=== PATIENT | female | born 1965 | race Caucasian/White ===

== ENCOUNTER 2020-05-13 05:48 | Observation (INO) ==
[2020-05-13] MEDS ORDERED: *HR* HYDROcodone/Acet 5/325 mg TABLET PO PRN (09:18)
[2020-05-13] MEDS ORDERED: Ondansetron 4 MG/2 ML VIAL IVP PRN (09:18)
[2020-05-13] MEDS ORDERED: Naloxone 0.4 MG/ML INJ IVP PRN (09:18)
[2020-05-13] MEDS ORDERED: 0.9 % Sodium Chloride 1,000 ML IVC SCH (09:30)
[2020-05-13] MEDS: Acetaminophen 325 MG TABLET PO PRN ×2 (10:15→21:40)
[2020-05-13] MEDS: MethylPREDNISolone 40 MG/ML VIAL IVP SCH ×2 (10:15→21:15)
[2020-05-13] MEDS: Ampicillin/Sulbactam 1,500 MG in 0.9 % Sodium Chloride Mini Bag 100 ML IVPB SCH ×3 (10:23→23:11)
[2020-05-13] MEDS: Ipratropium/Albuterol Neb 3 ML IH SCH ×3 (11:23→19:40)
[2020-05-13] MEDS: *HR* Heparin 5,000 UNIT/ML VIAL SQ SCH ×2 (15:03→21:14)
[2020-05-14] MEDS: Ipratropium/Albuterol Neb 3 ML IH SCH ×3 (00:05→08:06)
[2020-05-14 03:33] LABS: Basophils % 0.2 %; Hematocrit 31.2 % (35.3-44.9); Hemoglobin 10.2 g/dL (11.5-15.4); Immature Granulocytes % 0.8 % (0-4); Lymphocytes # 0.8 K/mcL (0.6-4.6); Lymphocytes % 4.2 %; Mean Corpuscular HGB Conc 32.7 g/dL (31.6-35.5); Mean Corpuscular Volume 97.8 fL (83.0-100.0); Mean Platelet Volume 9.4 fL (9.4-12.4); Monocytes # 0.2 K/mcL (0.0-1.3); Monocytes % 1.2 %; Neutrophils # 18.6 K/mcL (1.6-8.9); Platelet Count 330 K/mcL (140-400); Red Blood Count 3.19 M/mcL (3.82-4.97); Red Cell Distribution Width 12.8 % (11.5-14.5); Segmented Neutrophils % 93.6 %; White Blood Count 19.8 K/mcL (4.3-11.1)
[2020-05-14 03:53] LABS: BUN/Creatinine Ratio 26 (6-26); Blood Urea Nitrogen 23 mg/dL (6-20); Calcium 9.4 mg/dL (8.6-10.3); Carbon Dioxide 23 mEq/L (23-29); Chloride 107 mEq/L (98-107); Glucose 198 mg/dL (70-105); Magnesium 1.8 mg/dL (1.6-2.6); Osmolality,Calculated 293 (280-300); Phosphorous 2.3 mg/dL (2.7-4.5); Sodium 137 mEq/L (136-145); eGFR For African Americans > 60 (> 60); eGFR For Non-African Americans > 60 (> 60)
[2020-05-14] MEDS: Ampicillin/Sulbactam 1,500 MG in 0.9 % Sodium Chloride Mini Bag 100 ML IVPB SCH (05:25)
[2020-05-14] MEDS: *HR* Heparin 5,000 UNIT/ML VIAL SQ SCH (05:26)
[2020-05-14 07:13] VITALS: BP 152/82
[2020-05-14] MEDS: MethylPREDNISolone 40 MG/ML VIAL IVP SCH (08:57)
== END 2020-05-14 10:46 | disposition home or self-care (01) ==
LOC: 2NNU
PROVIDERS: ADMIT Family Medicine; ATTEND Family Medicine

== ENCOUNTER 2020-11-11 11:46 | Inpatient (IN) ==
[2020-11-11] MEDS ORDERED: Acetaminophen 325 MG TABLET PO PRN (17:36)
[2020-11-11] MEDS ORDERED: Naloxone 0.4 MG/ML INJ IVP PRN (17:36)
[2020-11-11] MEDS ORDERED: Ondansetron 4 MG/2 ML VIAL IVP PRN (17:36)
[2020-11-11] MEDS: 0.9 % Sodium Chloride 1,000 ML IVC SCH (18:16)
[2020-11-11] MEDS: cefTRIAXone 1,000 MG in Water for inj. (sterile) 10 ML IVP SCH (18:17)
[2020-11-11] MEDS: *HR* Enoxaparin 60 MG/0.6 ML SYRINGE SQ SCH (18:18)
[2020-11-11] MEDS: Nicotine 7 MG PATCH.TD24 TD SCH (18:29)
[2020-11-11] MEDS: *HR* HYDROcodone/Acet 5/325 mg TABLET PO PRN (20:59)
[2020-11-11 22:27] LABS: Troponin I 0.03 ng/mL (< 0.04)
[2020-11-12 02:41] LABS: Basophils % 0.3 %; Hematocrit 24.7 % (35.3-44.9); Hemoglobin 8.1 g/dL (11.5-15.4); Immature Granulocytes % 2.4 % (0-4); Lymphocytes # 0.4 K/mcL (0.6-4.6); Mean Corpuscular HGB Conc 32.8 g/dL (31.6-35.5); Mean Corpuscular Volume 94.6 fL (83.0-100.0); Mean Platelet Volume 9.8 fL (9.4-12.4); Monocytes # 0.1 K/mcL (0.0-1.3); Monocytes % 1.7 %; Neutrophils # 5.9 K/mcL (1.6-8.9); Platelet Count 140 K/mcL (140-400); Red Blood Count 2.61 M/mcL (3.82-4.97); Red Cell Distribution Width 13.2 % (11.5-14.5); Segmented Neutrophils % 89.6 %; White Blood Count 6.6 K/mcL (4.3-11.1)
[2020-11-12 03:07] LABS: Albumin 2.8 g/dL (3.5-5.7); Albumin/Globulin Ratio 1.1 (1.1-2.2); Bilirubin,Total 0.3 mg/dL (0.3-1.0); Calcium 7.5 mg/dL (8.6-10.3); Globulin 2.5 g/dL (2.4-3.5); Magnesium 2.8 mg/dL (1.6-2.6); Phosphorous 3.3 mg/dL (2.7-4.5); Platelet Estimate Normal (Normal); Total Protein 5.3 g/dL (6.4-8.9)
[2020-11-12] MEDS: *HR* Enoxaparin 60 MG/0.6 ML SYRINGE SQ SCH (05:51)
[2020-11-12] MEDS ORDERED: *HR* Enoxaparin 40 MG/0.4 ML SYRINGE SQ SCH (06:00)
[2020-11-12] MEDS ORDERED: Isovue-370 500 ML BOTTLE IVP ONE (07:39)
[2020-11-12] MEDS: Nicotine 7 MG PATCH.TD24 TD SCH (09:14)
[2020-11-12] MEDS: 0.9 % Sodium Chloride 1,000 ML IVC SCH (09:53)
[2020-11-12] MEDS: *HR* OxyCODONE Immed Rel 5 MG TABLET PO PRN ×3 (10:03→22:27)
[2020-11-12 12:37] LABS: Influenza A PCR Negative (Negative); Influenza B PCR Negative (Negative); Resp. Syncytial Virus PCR Negative (Negative)
[2020-11-12 12:43] LABS: SARS-CoV-2 by PCR (In House) Positive (Negative)
[2020-11-12] MEDS ORDERED: Remdesivir 200 MG in 0.9 % Sodium Chloride 100 ML IVPB ONE (14:00)
[2020-11-12] MEDS: Azithromycin 500 MG in 0.9 % Sodium Chloride 250 ML IVPB SCH (17:27)
[2020-11-12] MEDS: cefTRIAXone 1,000 MG in Water for inj. (sterile) 10 ML IVP SCH (17:27)
[2020-11-13 05:08] LABS: Hemoglobin 8.1 g/dL (11.5-15.4); Mean Corpuscular HGB Conc 32.4 g/dL (31.6-35.5); Mean Corpuscular Hemoglobin 31.6 pg (28.0-33.3); Mean Corpuscular Volume 97.7 fL (83.0-100.0); Mean Platelet Volume 9.9 fL (9.4-12.4); Platelet Count 183 K/mcL (140-400); Red Blood Count 2.56 M/mcL (3.82-4.97); Red Cell Distribution Width 13.8 % (11.5-14.5); White Blood Count 9.5 K/mcL (4.3-11.1)
[2020-11-13 05:22] LABS: Albumin 2.6 g/dL (3.5-5.7); Bilirubin,Direct 0.1 mg/dL (0.0-0.2); Bilirubin,Indirect 0.1 mg/dL (0.0-1.0); Bilirubin,Total 0.2 mg/dL (0.3-1.0); Globulin 2.7 g/dL (2.4-3.5); Total Protein 5.3 g/dL (6.4-8.9)
[2020-11-13 05:24] LABS: BUN/Creatinine Ratio 21 (6-26); Blood Urea Nitrogen 22 mg/dL (6-20); Calcium 8.1 mg/dL (8.6-10.3); Carbon Dioxide 18 mEq/L (23-29); Chloride 113 mEq/L (98-107); Glucose 101 mg/dL (70-105); Magnesium 1.8 mg/dL (1.6-2.6); Osmolality,Calculated 291 (280-300); Phosphorous 3.5 mg/dL (2.7-4.5); Potassium 4.1 mEq/L (3.5-5.1); Sodium 139 mEq/L (136-145); Transferrin 105 mg/dL (203-362); eGFR For African Americans > 60 (> 60); eGFR For Non-African Americans 55 (> 60)
[2020-11-13 05:42] LABS: Ferritin 543 ng/mL (10-120)
[2020-11-13 05:47] LABS: Folate 11.1 ng/mL (3.0-16.0)
[2020-11-13] MEDS: Cyanocobalamin (B-12) 1,000 MCG/ML VIAL IM SCH (08:31)
[2020-11-13] MEDS: Nicotine 7 MG PATCH.TD24 TD SCH (08:32)
[2020-11-13] MEDS: *HR* OxyCODONE Immed Rel 5 MG TABLET PO PRN ×2 (08:32→17:49)
[2020-11-13 09:37] LABS: % Iron Saturation 17 % (15-50); Iron 25 mcg/dL (50-170)
[2020-11-13] MEDS ORDERED: Iron Sucrose Complex 400 MG in 0.9 % Sodium Chloride 250 ML IVPB ONE (12:39)
[2020-11-13] MEDS ORDERED: Remdesivir 100 MG in 0.9 % Sodium Chloride 100 ML IVPB SCH (14:00)
[2020-11-13] MEDS: QUEtiapine Fumarate 100 MG TABLET PO SCH ×2 (16:43→19:31)
[2020-11-13] MEDS: cefTRIAXone 1,000 MG in Water for inj. (sterile) 10 ML IVP SCH (17:49)
[2020-11-13] MEDS: Azithromycin 500 MG in 0.9 % Sodium Chloride 250 ML IVPB SCH (17:49)
[2020-11-14] MEDS: *HR* OxyCODONE Immed Rel 5 MG TABLET PO PRN ×2 (00:14→09:57)
[2020-11-14 06:23] LABS: Alanine Aminotransferase 9 Units/L (7-52); Albumin 2.9 g/dL (3.5-5.7); Albumin/Globulin Ratio 1.1 (1.1-2.2); Alkaline Phosphatase 77 Units/L (34-104); Aspartate Amino Transferase 21 Units/L (13-39); BUN/Creatinine Ratio 23 (6-26); Bilirubin,Indirect 0.3 mg/dL (0.0-1.0); Bilirubin,Total 0.3 mg/dL (0.3-1.0); Blood Urea Nitrogen 23 mg/dL (6-20); Calcium 8.6 mg/dL (8.6-10.3); Carbon Dioxide 18 mEq/L (23-29); Chloride 111 mEq/L (98-107); Globulin 2.7 g/dL (2.4-3.5); Glucose 111 mg/dL (70-105); Osmolality,Calculated 288 (280-300); Potassium 4.2 mEq/L (3.5-5.1); Sodium 137 mEq/L (136-145); Total Protein 5.6 g/dL (6.4-8.9); eGFR For African Americans > 60 (> 60); eGFR For Non-African Americans 56 (> 60)
[2020-11-14 06:54] LABS: Hematocrit 25.8 % (35.3-44.9); Hemoglobin 8.2 g/dL (11.5-15.4); Mean Corpuscular HGB Conc 31.8 g/dL (31.6-35.5); Mean Corpuscular Hemoglobin 30.7 pg (28.0-33.3); Mean Corpuscular Volume 96.6 fL (83.0-100.0); Mean Platelet Volume 9.7 fL (9.4-12.4); Platelet Count 227 K/mcL (140-400); Red Blood Count 2.67 M/mcL (3.82-4.97); Red Cell Distribution Width 14.1 % (11.5-14.5); White Blood Count 6.9 K/mcL (4.3-11.1)
[2020-11-14] MEDS: Nicotine 7 MG PATCH.TD24 TD SCH (09:42)
[2020-11-14] MEDS: Cyanocobalamin (B-12) 1,000 MCG/ML VIAL IM SCH (09:43)
[2020-11-14] MEDS: QUEtiapine Fumarate 100 MG TABLET PO SCH ×3 (09:43→22:08)
[2020-11-14] MEDS: Azithromycin 500 MG in 0.9 % Sodium Chloride 250 ML IVPB SCH (14:57)
[2020-11-14] MEDS: *HR* HYDROcodone/Acet 5/325 mg TABLET PO PRN ×2 (15:21→22:07)
[2020-11-14] MEDS: ALPRAZolam 0.5 MG TABLET PO PRN (15:21)
[2020-11-14] MEDS: cefTRIAXone 1,000 MG in Water for inj. (sterile) 10 ML IVP SCH (18:01)
[2020-11-15] MEDS: ALPRAZolam 0.5 MG TABLET PO PRN ×2 (06:32→14:36)
[2020-11-15 06:34] LABS: Hematocrit 25.4 % (35.3-44.9); Hemoglobin 8.3 g/dL (11.5-15.4); Mean Corpuscular HGB Conc 32.7 g/dL (31.6-35.5); Mean Corpuscular Hemoglobin 31.6 pg (28.0-33.3); Mean Corpuscular Volume 96.6 fL (83.0-100.0); Mean Platelet Volume 9.6 fL (9.4-12.4); Monocytes # 0.4 K/mcL (0.0-1.3); Platelet Count 255 K/mcL (140-400); Red Blood Count 2.63 M/mcL (3.82-4.97); Red Cell Distribution Width 13.8 % (11.5-14.5); White Blood Count 5.3 K/mcL (4.3-11.1)
[2020-11-15 06:56] LABS: Alanine Aminotransferase 10 Units/L (7-52); Albumin 2.8 g/dL (3.5-5.7); Albumin/Globulin Ratio 1.1 (1.1-2.2); Alkaline Phosphatase 71 Units/L (34-104); Aspartate Amino Transferase 14 Units/L (13-39); BUN/Creatinine Ratio 24 (6-26); Bilirubin,Indirect 0.2 mg/dL (0.0-1.0); Bilirubin,Total 0.2 mg/dL (0.3-1.0); Blood Urea Nitrogen 20 mg/dL (6-20); Calcium 8.4 mg/dL (8.6-10.3); Carbon Dioxide 21 mEq/L (23-29); Chloride 112 mEq/L (98-107); Globulin 2.6 g/dL (2.4-3.5); Glucose 107 mg/dL (70-105); Osmolality,Calculated 293 (280-300); Potassium 3.5 mEq/L (3.5-5.1); Sodium 140 mEq/L (136-145); Total Protein 5.4 g/dL (6.4-8.9); eGFR For African Americans > 60 (> 60); eGFR For Non-African Americans > 60 (> 60)
[2020-11-15 07:06] LABS: Lymphocytes # 0.9 K/mcL (0.6-4.6); Neutrophils # 3.7 K/mcL (1.6-8.9); Platelet Estimate Normal (Normal)
[2020-11-15] MEDS: QUEtiapine Fumarate 100 MG TABLET PO SCH ×3 (08:03→23:35)
[2020-11-15] MEDS: Nicotine 7 MG PATCH.TD24 TD SCH (08:04)
[2020-11-15] MEDS: Cyanocobalamin (B-12) 1,000 MCG/ML VIAL IM SCH (08:05)
[2020-11-15] MEDS: Piperacillin/Tazobactam 3.375 GM in 0.9 % Sodium Chloride Mini Bag 100 ML IVPB SCH ×2 (14:40→23:33)
[2020-11-15] MEDS: *HR* OxyCODONE Immed Rel 5 MG TABLET PO PRN (14:40)
[2020-11-16] MEDS: *HR* OxyCODONE Immed Rel 5 MG TABLET PO PRN (00:19)
[2020-11-16] MEDS: ALPRAZolam 0.5 MG TABLET PO PRN ×3 (00:19→19:36)
[2020-11-16 02:15] LABS: Hemoglobin 8.4 g/dL (11.5-15.4); Mean Corpuscular HGB Conc 32.3 g/dL (31.6-35.5); Mean Corpuscular Volume 95.9 fL (83.0-100.0); Mean Platelet Volume 9.5 fL (9.4-12.4); Platelet Count 298 K/mcL (140-400); Red Blood Count 2.71 M/mcL (3.82-4.97); Red Cell Distribution Width 13.4 % (11.5-14.5); White Blood Count 7.5 K/mcL (4.3-11.1)
[2020-11-16 02:34] LABS: BUN/Creatinine Ratio 18 (6-26); Blood Urea Nitrogen 14 mg/dL (6-20); Calcium 7.9 mg/dL (8.6-10.3); Carbon Dioxide 22 mEq/L (23-29); Chloride 109 mEq/L (98-107); Glucose 105 mg/dL (70-105); Osmolality,Calculated 289 (280-300); Potassium 3.1 mEq/L (3.5-5.1); Sodium 139 mEq/L (136-145); eGFR For African Americans > 60 (> 60); eGFR For Non-African Americans > 60 (> 60)
[2020-11-16 02:39] LABS: Albumin 2.8 g/dL (3.5-5.7); Albumin/Globulin Ratio 1.1 (1.1-2.2); Bilirubin,Direct 0.1 mg/dL (0.0-0.2); Bilirubin,Indirect 0.2 mg/dL (0.0-1.0); Bilirubin,Total 0.3 mg/dL (0.3-1.0); Globulin 2.6 g/dL (2.4-3.5); Total Protein 5.4 g/dL (6.4-8.9)
[2020-11-16] MEDS: *HR* HYDROcodone/Acet 5/325 mg TABLET PO PRN ×2 (08:55→23:29)
[2020-11-16] MEDS: QUEtiapine Fumarate 100 MG TABLET PO SCH ×3 (08:55→19:35)
[2020-11-16] MEDS: Cyanocobalamin (B-12) 1,000 MCG/ML VIAL IM SCH (08:56)
[2020-11-16] MEDS: Piperacillin/Tazobactam 3.375 GM in 0.9 % Sodium Chloride Mini Bag 100 ML IVPB SCH ×3 (08:56→23:26)
[2020-11-16] MEDS: Nicotine 7 MG PATCH.TD24 TD SCH (08:57)
[2020-11-17 08:14] VITALS: BP 171/93; PULSE 80; TEMP 98
[2020-11-17] MEDS: Piperacillin/Tazobactam 3.375 GM in 0.9 % Sodium Chloride Mini Bag 100 ML IVPB SCH (09:08)
[2020-11-17] MEDS: Nicotine 7 MG PATCH.TD24 TD SCH (09:08)
[2020-11-17] MEDS: QUEtiapine Fumarate 100 MG TABLET PO SCH (09:18)
[2020-11-17 10:54] VITALS: O2SAT 95
== END 2020-11-17 11:41 | disposition home or self-care (01) | DRG 871 ==
LOC: 3BNU → SUATTDRO 11-12 13:44
PROVIDERS: ADMIT Pharmacist; ATTEND Internal Medicine

== ENCOUNTER 2021-07-07 12:33 | Inpatient (IN) ==
[2021-07-07] MEDS ORDERED: Naloxone 0.4 MG/ML INJ IVP PRN (16:06)
[2021-07-07] MEDS ORDERED: Ondansetron 4 MG/2 ML VIAL IVP PRN (16:06)
[2021-07-07] MEDS ORDERED: Piperacillin/Tazobactam 3.375 GM in 0.9 % Sodium Chloride Mini Bag 100 ML IVPB SCH (17:00)
[2021-07-07] MEDS ORDERED: Ringers Solution, Lactated 1,000 ML IVC SCH (17:00)
[2021-07-07] MEDS ORDERED: *HR* Propofol 200 MG/20 ML VIAL IVP ONE ×2 (17:37→18:49)
[2021-07-07] MEDS ORDERED: *HR* Rocuronium Bromide 50 MG/5 ML VIAL ONE (17:38)
[2021-07-07] MEDS ORDERED: Lidocaine -MPF 2% 2 ML VIAL ONE (17:38)
[2021-07-07] MEDS ORDERED: *HR* Midazolam HCl 2 MG/2 ML VIAL ONE (18:49)
[2021-07-07] MEDS ORDERED: *HR* FentaNYL (PF) 100 MCG/2 ML VIAL ONE (18:49)
[2021-07-07] MEDS ORDERED: Ondansetron 4 MG/2 ML VIAL ONE (18:51)
[2021-07-07] MEDS ORDERED: Lidocaine HCL 4 ML Topical Solution (Laryng-O-Jet Kit Sterile Pak) TP ONE (18:58)
[2021-07-07] MEDS ORDERED: Ketamine HCL *QUVA* 50mg (1mL) SYRINGE ONE (19:11)
[2021-07-07] MEDS ORDERED: *HR* HYDROMORPHONE 2 MG/ML VIAL ONE (19:49)
[2021-07-07] MEDS ORDERED: Sugammadex Sodium 200 MG/2 ML VIAL IV ONE (19:58)
[2021-07-07] MEDS ORDERED: Ketorolac 30 MG/ML VIAL IVP ONE (20:46)
[2021-07-07] MEDS ORDERED: 0.9 % Sodium Chloride 500 ML ONE (20:51)
[2021-07-07] MEDS ORDERED: cloNIDine HCL 0.1 MG TABLET PO SCH (23:30)
[2021-07-07] MEDS ORDERED: QUEtiapine Fumarate 300 MG TABLET PO SCH (23:45)
[2021-07-08] MEDS: *HR* Heparin 5,000 UNIT/ML VIAL SQ SCH ×2 (00:24→08:41)
[2021-07-08 05:56] LABS: Hematocrit 27.4 % (35.3-44.9); Hemoglobin 9.4 g/dL (11.5-15.4); Immature Granulocytes % 0.5 % (0-4); Lymphocytes # 0.6 K/mcL (0.6-4.6); Lymphocytes % 8.5 %; Mean Corpuscular HGB Conc 34.3 g/dL (31.6-35.5); Mean Corpuscular Hemoglobin 33.1 pg (28.0-33.3); Mean Corpuscular Volume 96.5 fL (83.0-100.0); Mean Platelet Volume 8.7 fL (9.4-12.4); Monocytes # 0.2 K/mcL (0.0-1.3); Neutrophils # 6.7 K/mcL (1.6-8.9); Platelet Count 308 K/mcL (140-400); Red Blood Count 2.84 M/mcL (3.82-4.97); Red Cell Distribution Width 12.5 % (11.5-14.5); White Blood Count 7.5 K/mcL (4.3-11.1)
[2021-07-08 06:07] LABS: BUN/Creatinine Ratio 14 (6-26); Blood Urea Nitrogen 15 mg/dL (6-20); Calcium 8.4 mg/dL (8.6-10.3); Carbon Dioxide 19 mEq/L (23-29); Chloride 111 mEq/L (98-107); Glucose 124 mg/dL (70-105); Osmolality,Calculated 286 (280-300); Potassium 3.9 mEq/L (3.5-5.1); Sodium 137 mEq/L (136-145); eGFR For African Americans > 60 (> 60); eGFR For Non-African Americans 51 (> 60)
[2021-07-08] MEDS ORDERED: QUEtiapine Fumarate 25 MG TABLET PO SCH (09:00)
[2021-07-08 11:15] VITALS: BP 119/79; PULSE 75; TEMP 97.8; O2SAT 99
== END 2021-07-08 12:23 | disposition home or self-care (01) | DRG 357 ==
LOC: 3ANU → SUATTDRO 15:16
PROVIDERS: ADMIT Internal Medicine; ATTEND Internal Medicine

== ENCOUNTER 2021-11-14 16:43 | Inpatient (IN) ==
[2021-11-14] MEDS ORDERED: Melatonin 3 MG TABLET PO PRN (22:05)
[2021-11-14] MEDS ORDERED: Naloxone 0.4 MG/ML INJ IVP PRN (22:05)
[2021-11-14] MEDS ORDERED: Acetaminophen 325 MG TABLET PO PRN (22:05)
[2021-11-14] MEDS ORDERED: Ondansetron 4 MG/2 ML VIAL IVP PRN (22:05)
[2021-11-14] MEDS: 0.9 % Sodium Chloride 1,000 ML IVC SCH (22:33)
[2021-11-14] MEDS ORDERED: Dextrose Gel 15 GM/37.5 ML TUBE PO PRN ×2 (22:33)
[2021-11-14] MEDS ORDERED: D5% in Water 1,000 ML IVC PRN (22:33)
[2021-11-14] MEDS ORDERED: *HR* Dextrose 50 % in Water (Syg) 50 ML SYRINGE IVP PRN (22:33)
[2021-11-14] MEDS: Famotidine 20 MG TABLET PO SCH (23:07)
[2021-11-14] MEDS: ALPRAZolam 0.5 MG TABLET PO PRN (23:07)
[2021-11-14 23:56] LABS: Adenovirus Not Detected (Not Detect); Bordetella Pertussis Not Detected (Not Detect); Chlamydophila pneumoniae Not Detected (Not Detect); Coronavirus 229E Not Detected (Not Detect); Coronavirus HKU1 Not Detected (Not Detect); Coronavirus NL63 Not Detected (Not Detect); Coronavirus OC43 Not Detected (Not Detect); Human Metapneumovirus Not Detected (Not Detect); Human Rhinovirus/Enterovirus Not Detected (Not Detect); Influenza A Subtype 2009 H1 Not Detected (Not Detect); Influenza B Not Detected (Not Detect); Mycoplasma pneumoniae Not Detected (Not Detect); Parainfluenza Virus 1 Not Detected (Not Detect); Parainfluenza Virus 2 Not Detected (Not Detect); Parainfluenza Virus 3 Not Detected (Not Detect); Parainfluenza Virus 4 Not Detected (Not Detect); Respiratory Syncytial Virus Not Detected (Not Detect); SARS-CoV-2 Not Detected (Not Detect)
[2021-11-15] MEDS: QUEtiapine Fumarate 300 MG TABLET PO SCH ×2 (00:20→21:17)
[2021-11-15 01:20] LABS: Basophils % 0.2 %
[2021-11-15 01:21] LABS: Basophils # 0.1 K/mcL (0.0-0.2); Hematocrit 23.1 % (35.3-44.9); Hemoglobin 7.8 g/dL (11.5-15.4); Immature Granulocytes % 1.3 % (0-4); Lymphocytes # 1.6 K/mcL (0.6-4.6); Lymphocytes % 6.1 %; Mean Corpuscular HGB Conc 33.8 g/dL (31.6-35.5); Mean Corpuscular Hemoglobin 33.9 pg (28.0-33.3); Mean Corpuscular Volume 100.4 fL (83.0-100.0); Monocytes # 0.5 K/mcL (0.0-1.3); Monocytes % 1.8 %; Platelet Count 334 K/mcL (140-400); Red Cell Distribution Width 15.9 % (11.5-14.5); Segmented Neutrophils % 90.6 %; White Blood Count 26.8 K/mcL (4.3-11.1)
[2021-11-15 01:22] LABS: Neutrophils # 24.3 K/mcL (1.6-8.9)
[2021-11-15 01:28] LABS: INR 1.3; Prothrombin Time 14.7 Seconds (9.4-12.1)
[2021-11-15 01:37] LABS: Albumin 2.4 g/dL (3.5-5.7); Albumin/Globulin Ratio 0.9 (1.1-2.2); Bilirubin,Direct 0.3 mg/dL (0.0-0.2); Bilirubin,Indirect 0.3 mg/dL (0.0-1.0); Bilirubin,Total 0.6 mg/dL (0.3-1.0); Globulin 2.6 g/dL (2.4-3.5)
[2021-11-15 01:39] LABS: Calcium 7.7 mg/dL (8.6-10.3); Magnesium 1.6 mg/dL (1.6-2.6); Phosphorous 3.5 mg/dL (2.7-4.5); Potassium 3.8 mEq/L (3.5-5.1)
[2021-11-15 04:32] LABS: Ferritin 415 ng/mL (10-120); Iron < 10 mcg/dL (50-170); Transferrin 95 mg/dL (203-362)
[2021-11-15 04:35] LABS: Folate 9.3 ng/mL (3.0-16.0)
[2021-11-15] MEDS: Levothyroxine 25 MCG TABLET PO SCH (05:50)
[2021-11-15] MEDS: 0.9 % Sodium Chloride 1,000 ML IVC SCH (05:53)
[2021-11-15] MEDS: QUEtiapine Fumarate 25 MG TABLET PO SCH ×2 (08:47→17:57)
[2021-11-15] MEDS: cefTRIAXone 2,000 MG in 0.9 % Sodium Chloride Mini Bag 100 ML IVPB SCH (08:47)
[2021-11-15] MEDS: Azithromycin 250 MG TABLET PO SCH (08:47)
[2021-11-15] MEDS: Famotidine 20 MG TABLET PO SCH (08:48)
[2021-11-15 09:25] LABS: Hematocrit 23.8 % (35.3-44.9); Hemoglobin 7.7 g/dL (11.5-15.4); Immature Platelets 1.4 % (1.1-6.1); Mean Corpuscular HGB Conc 32.4 g/dL (31.6-35.5); Mean Corpuscular Volume 102.1 fL (83.0-100.0); Mean Platelet Volume 9.4 fL (9.4-12.4); Platelet Count 319 K/mcL (140-400); Red Blood Count 2.33 M/mcL (3.82-4.97); Red Cell Distribution Width 16.4 % (11.5-14.5); White Blood Count 24.2 K/mcL (4.3-11.1)
[2021-11-15 09:46] LABS: Lymphocytes # 1.5 K/mcL (0.6-4.6); Monocytes # 0.2 K/mcL (0.0-1.3); Neutrophils # 22.3 K/mcL (1.6-8.9); Platelet Estimate Normal (Normal)
[2021-11-15] MEDS: ALPRAZolam 0.5 MG TABLET PO PRN (20:17)
[2021-11-15] MEDS: Mirtazapine 15 MG TABLET PO SCH (20:17)
[2021-11-15] MEDS: cloNIDine HCL 0.1 MG TABLET PO SCH (20:17)
[2021-11-15] MEDS ORDERED: QUEtiapine Fumarate 300 MG TABLET PO SCH (21:00)
[2021-11-15] MEDS ORDERED: NON-FORMULARY MEDICATION 1 EACH EACH (Quetiapine Fumarate [Seroquel] 50 MG Tablet) PO SCH (21:00)
[2021-11-15] MEDS: *HR* Buprenorphine HCl 2 MG SUBLINGUAL TABLET SL SCH (21:17)
[2021-11-16 04:25] LABS: Basophils % 0.2 %; Eosinophils % 0.2 %; Lymphocytes % 7.6 %; Red Cell Distribution Width 16.5 % (11.5-14.5)
[2021-11-16 04:27] LABS: Hematocrit 22.1 % (35.3-44.9); Hemoglobin 7.1 g/dL (11.5-15.4); Immature Granulocytes % 0.9 % (0-4); Immature Platelets 1.9 % (1.1-6.1); Lymphocytes # 1.4 K/mcL (0.6-4.6); Mean Corpuscular HGB Conc 32.1 g/dL (31.6-35.5); Mean Corpuscular Hemoglobin 33.6 pg (28.0-33.3); Mean Corpuscular Volume 104.7 fL (83.0-100.0); Mean Platelet Volume 9.5 fL (9.4-12.4); Monocytes # 0.3 K/mcL (0.0-1.3); Monocytes % 1.6 %; Neutrophils # 16.8 K/mcL (1.6-8.9); Platelet Count 183 K/mcL (140-400); Red Blood Count 2.11 M/mcL (3.82-4.97); Segmented Neutrophils % 89.5 %; White Blood Count 18.8 K/mcL (4.3-11.1)
[2021-11-16 04:33] LABS: Calcium 7.8 mg/dL (8.6-10.3); Potassium 4.6 mEq/L (3.5-5.1)
[2021-11-16] MEDS: Famotidine 20 MG TABLET PO SCH (05:29)
[2021-11-16] MEDS: Levothyroxine 25 MCG TABLET PO SCH (05:29)
[2021-11-16] MEDS ORDERED: Ringers Solution, Lactated 1,000 ML ONE (07:10)
[2021-11-16] MEDS ORDERED: Ringers Solution, Lactated 500 ML IVC ONE (07:15)
[2021-11-16 07:56] LABS: ABG Base Excess -8 mEq/L (-2 to 3); ABG HCO3 16 mEq/L (21-27); ABG Oxygen Saturation 96 % (95-98); ABG PCO2 26 mmHg (35-45); ABG PO2 78 mmHg (85-104); ABG TCO2 17 mEq/L (20-26)
[2021-11-16 08:08] LABS: Hematocrit 20.5 % (35.3-44.9); Hemoglobin 6.7 g/dL (11.5-15.4)
[2021-11-16] MEDS: cefTRIAXone 2,000 MG in 0.9 % Sodium Chloride Mini Bag 100 ML IVPB SCH (10:08)
[2021-11-16] MEDS: Azithromycin 250 MG TABLET PO SCH (10:09)
[2021-11-16] MEDS: *HR* Buprenorphine HCl 2 MG SUBLINGUAL TABLET SL SCH ×2 (10:09→20:38)
[2021-11-16] MEDS: QUEtiapine Fumarate 25 MG TABLET PO SCH ×2 (10:09→15:56)
[2021-11-16 11:53] LABS: Amphetamine Screen,Urine Negative ng/mL (Cutoff=1000); Barbiturate Screen,Urine Negative ng/mL (Cutoff=200); Benzodiazepines Screen,Urine Positive ng/mL (Cutoff=200); Cannabinoid Screen,Urine Negative ng/mL (Cutoff = 50); Cocaine Screen,Urine Negative ng/mL (Cutoff= 300); Opiate Screen,Urine Negative ng/mL (Cutoff=300); Phencyclidine Screen,Urine Negative ng/mL (Cutoff=25)
[2021-11-16] MEDS ORDERED: Sodium Bicarbonate 150 MEQ in D5% in Water 1,000 ML IVC SCH (14:30)
[2021-11-16 17:44] LABS: Immature Reticulocyte % 17.1 % (11.0-38.0); Retculocyte # 0.02 M/mcL (0.05-0.10); Reticulocyte % 1.1 % (1.6-2.8)
[2021-11-16 18:04] LABS: Albumin 2.2 g/dL (3.5-5.7); Albumin/Globulin Ratio 0.8 (1.1-2.2); Bilirubin,Direct 0.1 mg/dL (0.0-0.2); Bilirubin,Indirect 0.3 mg/dL (0.0-1.0); Bilirubin,Total 0.4 mg/dL (0.3-1.0); Globulin 2.6 g/dL (2.4-3.5); Total Protein 4.8 g/dL (6.4-8.9)
[2021-11-16] MEDS ORDERED: 0.9 % Sodium Chloride 250 ML ONE (18:44)
[2021-11-16] MEDS: cloNIDine HCL 0.1 MG TABLET PO SCH (20:38)
[2021-11-16] MEDS: Mirtazapine 15 MG TABLET PO SCH (20:39)
[2021-11-16] MEDS ORDERED: QUEtiapine Fumarate 100 MG TABLET PO SCH (21:00)
[2021-11-16 22:26] VITALS: O2SAT 92
[2021-11-16 23:11] VITALS: TEMP 98
[2021-11-17 02:18] VITALS: BP 112/72; PULSE 105
[2021-11-17] MEDS: Famotidine 20 MG TABLET PO SCH (05:30)
[2021-11-17] MEDS: Levothyroxine 25 MCG TABLET PO SCH (05:32)
[2021-11-17] MEDS: Azithromycin 250 MG TABLET PO SCH (08:02)
[2021-11-17] MEDS: QUEtiapine Fumarate 25 MG TABLET PO SCH (08:02)
[2021-11-17] MEDS: cefTRIAXone 2,000 MG in 0.9 % Sodium Chloride Mini Bag 100 ML IVPB SCH (08:03)
[2021-11-17] MEDS: *HR* Buprenorphine HCl 2 MG SUBLINGUAL TABLET SL SCH (08:13)
== END 2021-11-17 10:15 | disposition left against medical advice (07) | DRG 871 ==
LOC: 3NENU
PROVIDERS: ADMIT Internal Medicine; ATTEND Internal Medicine